=== PATIENT | female | born 1990 | race Caucasian/White ===

== ENCOUNTER 2017-06-15 21:43 | Emergency (ER) | payer OTHER ==
[~2017-06-15] VITALS: Ht 152.4 cm; Wt 103.6 kg
[2017-06-15] MEDS ORDERED: SODIUM CHLORIDE FLUSH 10ML SYR IVF ONE (22:00)
[2017-06-15] MEDS ORDERED: ONDANSETRON 2MG/ML, 2ML IVPush ONE (22:00)
[2017-06-15] MEDS ORDERED: MORPHINE SULFATE 4 MG/ML, 1ML IVPush PRN (22:00)
[2017-06-15] MEDS ORDERED: SODIUM CHLORIDE 0.9% 1,000ML IVBOLUS ONE (22:30)
[2017-06-15 22:33] LABS: HEMATOCRIT 44.5 % (34.6-47.8); HEMOGLOBIN 14.5 g/dL (11.7-16.4); WHITE BLOOD COUNT 14.5 x10^3/uL (3.4-10)
[2017-06-15 22:46] LABS: BLOOD UREA NITROGEN 16 mg/dL (7-18)
[2017-06-15 22:49] LABS: ASPARTATE AMINO TRANSFERASE 53 U/L (15-37)
[2017-06-15] MEDS ORDERED: MORPHINE SULFATE 4 MG/ML, 1ML ONE (22:53)
[2017-06-15] MEDS ORDERED: ONDANSETRON 2MG/ML, 2ML ONE (22:53)
[2017-06-15] MEDS ORDERED: PHEN37.53 PO (23:03)
[2017-06-15] MEDS ORDERED: RANI-276 PO (23:04)
[2017-06-16 00:57] VITALS: BP 127/76
[2017-06-16] MEDS ORDERED: OMNIPAQUE 350 MG/ML, 100ML BOTTLE ONE (02:17)
== END 2017-06-16 01:00 | disposition home or self-care (01) ==
LOC: ED 22:52
DX: K29.00 Acute gastritis without bleeding (principal); D72.829 Elevated white blood cell count, unspecified; E78.5 Hyperlipidemia, unspecified
CPT/HCPCS: 36415; 74020; 74177; 76700; 80053; 81003; 83690; 84703; 85025; 96361; 96374; 96375; 99285; J2405; J7030; Q9967

== ENCOUNTER 2018-05-30 07:51 | Emergency (ER) | payer SELFPAY ==
[~2018-05-30] VITALS: Ht 157.5 cm; Wt 108.8 kg
[~2018-05-30 07:51] MED LIST: PHEN37.53 PO; RANI-276 PO
[2018-05-30] MEDS ORDERED: OMEP-110 PO (08:13)
[2018-05-30] MEDS ORDERED: ONDANSETRON ODT 4 MG ONE (08:30)
[2018-05-30] MEDS ORDERED: HYDROcodone/APAP 5/325 TABLET ONE (08:31)
[2018-05-30 08:34] LABS: MICROSCOPIC NOT IND
[2018-05-30 08:36] LABS: CULTURE INDICATED? NO
[2018-05-30 08:45] LABS: BASOPHILS # (AUTO) 0.03 x10^3/uL (0-0.1); BASOPHILS % (AUTO) 0 % (0-1); EOSINOPHILS # (AUTO) 0.23 x10^3/uL (0-0.4); EOSINOPHILS % (AUTO) 2 % (1-7); LYMPHOCYTES # (AUTO) 3.66 x10^3/uL (1-3.4); LYMPHOCYTES % (AUTO) 31 % (22-44); MD NO; MEAN CORPUSCULAR HEMOGLOBIN 27.6 pg (27.0-34.8); MEAN CORPUSCULAR HGB CONC 33.2 g/dL (32.4-35.8); MEAN CORPUSCULAR VOLUME 83.1 fL (80-100); MEAN PLATELET VOLUME 11.7 fL (7.4-10.4); MONOCYTES % (AUTO) 4 % (2-9); NEUTROPHILS # (AUTO) 7.52 x10^3/uL (1.8-6.8); NEUTROPHILS % (AUTO) 63 % (42-75); PLATELET COUNT 263 x10^3/uL (130-400); RED BLOOD COUNT 4.85 x10^6/uL (3.82-5.3); RED CELL DISTRIBUTION WIDTH 13.7 % (9.6-15.2)
[2018-05-30 08:58] LABS: ALBUMIN 3.3 g/dL (3.4-5.0); ANION GAP 7 mmol/L (5-15); CALCIUM 8.4 mg/dL (8.5-10.1); CHLORIDE 105 mmol/L (98-107)
[2018-05-30] MEDS ORDERED: HYDROcodone/APAP 5/325 TABLET PO ONE (09:00)
[2018-05-30] MEDS ORDERED: ONDANSETRON ODT 4 MG PO ONE (09:00)
[2018-05-30 09:05] LABS: ALANINE AMINOTRANSFERASE 69 U/L (12-78); ALKALINE PHOSPHATASE 100 U/L (45-117); BILIRUBIN,TOTAL 0.7 mg/dL (0.2-1.0); CREATININE 0.66 mg/dL (0.55-1.02); TOTAL PROTEIN 7.5 g/dL (6.4-8.2)
[2018-05-30 10:05] VITALS: BP 114/63
[2018-05-30] MEDS ORDERED: OMNIPAQUE 350 MG/ML, 100ML BOTTLE ONE (10:18)
== END 2018-05-30 11:40 | disposition home or self-care (01) ==
LOC: ED 09:51
DX: R10.33 Periumbilical pain (principal); R10.32 Left lower quadrant pain; E78.5 Hyperlipidemia, unspecified
CPT/HCPCS: 36415; 74177; 76830; 80053; 81003; 83690; 84703; 85025; 99285; Q0162; Q9967